=== PATIENT | male | born 1995 | race Caucasian/White ===

== ENCOUNTER → 2018-04-27 08:40 | Emergency (ER) | payer BC ==
[~2018-04-27 08:40] MED LIST: Bupivacaine 0.5%* 50 ML VIAL INJ ONE
--- NOTE | 2018-04-27 09:47 | ED ---
Head Injury - HPI Summary HPI Summary: Patient presents to ED with with laceration to lower lip that occurred around 1: 00am this morning. He reports he was drinking last night at his fraternity house and as he was going down the stairs he slipped and fell. He is not sure if someone bumped into him or the floor was wet etc. He is also not sure how he fell/landed or struck his head. He does not believe he lost consciousness and feels he got up quite quickly. The only other discomfort he feels at this time is his left lateral hip which he reports may be a scratched and this is minor. He denies headache, epistaxis, dental pain/laxity, visual change, dizziness, nausea, vomiting, neck pain, numbness, tingling, weakness, confusion , dizziness, balance issues. He is able to ambulate without difficulty and has full range of motion of his extremities. Reports he had about 6 hours of sleep last night which is less than usual for him. Imms are UTD. - History Of Current Complaint Chief Complaint: EDLacSutureRecheck Stated Complaint: MOUTH INJURY Time Seen by Provider: 04/27/18 09:05 Hx Obtained From: Patient Pain Intensity: 2 - Allergies/Home Medications Allergies/Adverse Reactions: Allergies Allergy/AdvReac Type Severity Reaction Status Date / Time No Known Allergies Allergy Verified 04/27/18 08:47 PMH/Surg Hx/FS Hx/Imm Hx Previously Healthy: Yes Endocrine/Hematology History: Denies: Hx Anticoagulant Therapy, Hx Blood Disorders, Autoimmune Disease - Immunization History Immunizations Up to Date: Yes Infectious Disease History: No Infectious Disease History: Denies: Hx of Known/Suspected MRSA, Traveled Outside the in Last 30 Days - Social History Occupation: Student - [employer] Lives: Dormitory/Roommates Alcohol Use: Weekly Hx Substance Use: No Substance Use Type: Reports: None Hx Tobacco Use: No Smoking Status (MU): Never Smoked Tobacco Review of Systems Constitutional: Negative Eyes: Negative ENT: Negative Negative: Dental Pain Cardiovascular: Negative Respiratory: Negative Gastrointestinal: Negative Genitourinary: Negative Musculoskeletal: Other - Lt lateral hip Skin: Other - lip lac Neurological: Negative Psychological: Normal All Other Systems Reviewed And Are Negative: Yes Physical Exam Triage Information Reviewed: Yes Vital Signs On Initial Exam: Initial Vitals Temp Pulse Resp BP Pulse Ox 98.5 F 59 14 130/68 99 04/27/18 08:48 04/27/18 08:48 04/27/18 08:48 04/27/18 08:48 04/27/18 08:48 Vital Signs Reviewed: Yes Appearance: Positive: Well-Appearing - appears fatigued - injected sclera, glassy eyes, pupils dilated but reactive, smells like ETOH, No Pain Distress, Well-Nourished Skin: Positive: Warm, Skin Color Reflects Adequate Perfusion, Dry Head/Face: Positive: Normal Head/Face Inspection - atraumatic otherwise- no step off, no battlesign, no racoon eyes Eyes: Positive: EOMI, PRITI - no photophobia, Conjunctiva Clear. Negative: Conjunctiva Inflammed, Discharge ENT: Positive: Hearing grossly normal, Pharynx normal - no blood in mouth other than over lip lac and superior lip where mouth closes, TMs normal - no hemotympanum, Uvula midline. Negative: Nasal drainage, Trismus, Muffled voice Dental: Negative: Dental Fracture @ Neck: Positive: Supple, Nontender Respiratory/Lung Sounds: Positive: Breath Sounds Present Cardiovascular: Positive: Normal Abdomen Description: Positive: Nontender, Soft Musculoskeletal: Positive: Normal, Strength/ROM Intact Neurological: Positive: Sensory/Motor Intact, Alert, Oriented to Person Place, Time, CN Intact II-III, Facial Symmetry, Speech Normal. Negative: Ataxic Gait Psychiatric: Positive: Normal Procedures - Laceration/Wound Repair 1 Location: face Description: Linear Anesthesia: Local, .5%, Marcaine Length, Depth and Shape: 0.75cm x 3mm Betadine Prep?: Yes Irrigated w/ Saline (ccs): 60 - sterile saline Laceration/Wound Explored: clean Suture Type: Chromic - 5-0 Number of Sutures: 5 Layer Closure?: No - deeper layer already closed Sterile Dressing Applied?: Yes - triple anbx ointment - hemodynamically stable - pt duyen well 2 Location: face Description: Irregular Anesthesia: Local, .5%, Marcaine Length, Depth and Shape: 0.25cm x 2mm Betadine Prep?: Yes Irrigated w/ Saline (ccs): 60 - sterile saline Laceration/Wound Explored: clean Closure: Single Layer Suture Type: Other - prolene 6-0 Number of Sutures: 2 Layer Closure?: No Sterile Dressing Applied?: Yes - triple anbx ointment - hemodynamically stable - pt duyen well Diagnostics - Vital Signs Vital Signs Temp Pulse Resp BP Pulse Ox 04/27/18 08:48 98.5 F 59 14 130/68 99 - Laboratory Lab Statement: Any lab studies that have been ordered have been reviewed, and results considered in the medical decision making process. Head Injury Course/Dx Course Of Treatment: CT brain: no hemorrhage, no fx, no swelling however there is a note of "diffuse paranasal sinus disease with an air-fluid of all in the left maxillary sinus possibly indicating an acute component". Patient's face does not appear to be asymmetric, however he has mild tender to palpation here. No maxillary/dental root pain nor laxity or deformity. He reports he has had some sinus issues over this past semester which may be persisting - confirmed w / radiology who also states given the chronic sinus inflammation along w/ acute fluid, this is most likely sinusitis. Lac's repaired - reviewed w/ pt and pt's father, James, prior to procedure - they agree w/ plan. Although pt does not have acute neuro deficits, advised monitoring for s/sx of TBI over the next 12- 24 hours given injury mechanism while intoxicated - pt agrees w/ plan. - Diagnoses Provider Diagnoses: Lip laceration, Fall down stairs Discharge - Sign-Out/Discharge Documenting (check all that apply): Patient Departure - Discharge Plan Condition: Stable Disposition: HOME Patient Education Materials: Facial Laceration (ED), Care For Your Stitches (ED ), Head Injury (ED) Referrals: [facility] [place] - Dale WILLS [Primary Care Provider] - Additional Instructions: Be gentle with wounds to prevent rutpure - gently wash external wound with soap and water, rinse well and pat dry with clean cloth. Reapply triple antibiotic ointment. Continue this daily until sutures are removed in 5 days. Call your [facility] [place] Sunday to schedule wound recheck and suture. Your internal lip sutures will absorb - do not remove. You may ice and rinse mouth with saline to aid in healing/swelling. You may also take ibuprofen with food to reduce pain/swelling. * If you develop redness, swelling, streaking, purulent drainage, fevers or chills, seek medical attention sooner or return to the emergency department. Monitor yourself for signs of concussion over the next 12-24 hours (see education handout for details). *If you develop danger signs or symptoms, return to the ED. - Billing Disposition and Condition Condition: STABLE Disposition: Home
[2018-04-27 12:37] VITALS: BP 122/68
== END | disposition home or self-care (01) ==
LOC: ED 08:40
DX: S01.511A Laceration without foreign body of lip, initial encounter (principal); W10.9XXA Fall (on) (from) unspecified stairs and steps, initial encounter; Y92.89 Other specified places as the place of occurrence of the external cause
CPT/HCPCS: 12013; 70450; 96374; 99281